=== PATIENT | male | born 1965 | race Caucasian/White ===

== ENCOUNTER 2017-04-15 08:10 | Inpatient (IN) | payer OTHER ==
[2017-04-15 10:12] VITALS: BMI 20.9
--- NOTE | 2017-04-15 13:13 | HP ---
CIWA Score - CIWA Score Nausea/Vomitin Muscle Tremors: 3 Anxiety: 3 Agitation: 3 Paroxysmal Sweats: 2 Orientation: 0-Oriented Tacttile Disturbances: 2-Mild Itch/Numbness/Burn Auditory Disturbances: 2-Mild Harshness/Frighten Visual Disturbances: 0-None Headache: 2-Mild CIWA-Ar Total Score: 20 Admission ROS BHS - HPI Chief Complaint: i need help to stop drinking alcohol Allergies/Adverse Reactions: Allergies Allergy/AdvReac Type Severity Reaction Status Date / Time No Known Allergies Allergy Verified 04/15/17 10:38 History of Present Illness: this 51 years old male with alcohol dependence,seeking detox,seen in [facility] last night,refer for detox,last treatment 02/14 [facility] seizure last 01/14 alcohol related syncope ptsd depression longest period sobriety 1 year Exam Limitations: No Limitations - Ebola screening Have you traveled outside of the country in the last 21 days: No Have you had contact with anyone from an Ebola affected area: No Have you been sick,other than usual withdrawal symptoms: No - Review of Systems Constitutional: Loss of Appetite, Malaise, Night Sweats, Changes in sleep, Weakness, Unintentional Wgt. Loss EENT: reports: Nose Congestion, Other (abrasion of nasal area) Respiratory: reports: No Symptoms reported Cardiac: reports: No Symptoms Reported GI: reports: Nausea, Poor Appetite, Abdominal cramping : reports: No Symptoms Reported Musculoskeletal: reports: Back Pain, Muscle Pain Integumentary: reports: Dryness Neuro: reports: Headache, Tremors Endocrine: reports: No Symptoms Reported Hematology: reports: No Symptoms Reported Psychiatric: reports: No Sypmtoms Reported, Judgement Intact, Mood/Affect Appropiate, Orientated x3, Depressed (depression) Patient History - Patient Medical History Hx Anemia: No Hx Asthma: No Hx Chronic Obstructive Pulmonary Disease (COPD): No Hx Cancer: Yes (left kidney in 2002) Hx Cardiac Disorders: No Hx Congestive Heart Failure: No Hx Hypertension: No Hx Hypercholesterolemia: No Hx Pacemaker: No HX Cerebrovascular Accident: No Hx Seizures: Yes (alcohol related-last episode was 3 mos. ago) Hx Dementia: No Hx Diabetes: No Hx Gastrointestinal Disorders: Yes (acid reflux) Hx Liver Disease: No Hx Genitourinary Disorders: No Hx Sexually Transmitted Disorders: No Hx Renal Disease (ESRD): No Hx Thyroid Disease: No Hx Human Immunodeficiency Virus (HIV): No (10/15 last negative) Hx Hepatitis C: No Hx Depression: Yes (ptsd) Hx Suicide Attempt: No Hx Bipolar Disorder: No Hx Schizophrenia: No Other Medical History: no suicidal,no homicidal - Patient Surgical History Past Surgical History: Yes Hx Neurologic Surgery: No Hx Cataract Extraction: No Hx Cardiac Surgery: No Hx Lung Surgery: No Hx Breast Surgery: No Hx Breast Biopsy: No Hx Abdominal Surgery: No Hx Appendectomy: No Hx Cholecystectomy: No Hx Genitourinary Surgery: No Hx Section: No Hx Orthopedic Surgery: No Other Surgical History: left nephrectomy in 2002,right mandible in 2004 Anesthesia Reaction: No - PPD History Previous Implant?: Yes Documented Results: Negative w/o proof Implanted On Prior R Admission?: No PPD to be Administered?: Yes - Smoking Cessation Smoking history: Current some day smoker Have you smoked in the past 12 months: Yes Aproximately how many cigarettes per day: 2 Hx Chewing Tobacco Use: No Initiated information on smoking cessation: Yes 'Breaking Loose' booklet given: 04/15/17 - Substance & Tx. History Hx Alcohol Use: Yes Hx Substance Use: No Substance Use Type: Alcohol Hx Substance Use Treatment: Yes ([facility] in 02/14) - Substances Abused Alcohol-vodka Route: Oral Frequency: Daily Amount used: 2 pts. Age of first use: 22 Date of Last Use: 04/14/17 Family Disease History - Family Disease History Family Disease History: Other: Grandparent (alcohol,) Admission Physical Exam BHS - Vital Signs Vital Signs: Vital Signs - 24 hr 04/15/17 10:08 Temperature 96.8 F L Pulse Rate 80 Respiratory 20 Rate Blood Pressure 154/110 - Physical General Appearance: Yes: Moderate Distress, Tremorous, Irritable, Sweating, Anxious HEENTM: Yes: Normal ENT Inspection, MIGUEL, Pharynx Normal Respiratory: Yes: Lungs Clear, Normal Breath Sounds, No Respiratory Distress Neck: Yes: Within Normal Limits, Supple, Trachea in good position Breast: Yes: Within Normal Limits Cardiology: Yes: Within Normal Limits, Regular Rhythm, Regular Rate, S1, S2 Abdominal: Yes: Normal Bowel Sounds, Non Tender, Flat, Soft, Surgical Scar (s/p left nephrectomt left [id number] for cancer) Genitourinary: Yes: Within Normal Limits Back: Yes: Within Normal Limits Musculoskeletal: Yes: Back pain, Muscle Pain Extremities: Yes: Within Normal Limits, Normal Range of Motion, Tremors Neurological: Yes: shield installer II-XII NML intact, Alert, Motor Strength 5/5 Integumentary: Yes: Dry Lymphatic: Yes: Within Normal Limits - Diagnostic (1) Alcohol dependence with uncomplicated withdrawal Current Visit: Yes Status: Acute (2) Alcohol related seizure Current Visit: Yes Status: Acute (3) Syncope Current Visit: Yes Status: Acute (4) Post traumatic stress disorder (PTSD) Current Visit: Yes Status: Acute (5) Depression Current Visit: Yes Status: Acute (6) Weight loss Current Visit: Yes Status: Acute (7) Abrasion of nose Current Visit: Yes Status: Acute Cleared for Admission [facility] - Detox or Rehab [facility] Level of Care: Medically Managed Detox Regimen/Protocol: Librium [facility] Breath Alcohol Content Breath Alcohol Content: 0 Urine Drug Screen - Results Drug Screen Negative: No Urine Drug Screen Results: THC-Marijuana, BZO-Benzodiazepines
[2017-04-15] MEDS ORDERED: ACETAMINOPHEN 325 MG TABLET (FP) PO PRN (13:32)
[2017-04-15] MEDS ORDERED: chlordiazePOXIDE HCL 25 MG CAPSULE PO PRN (13:32)
[2017-04-15] MEDS ORDERED: MAGNESIUM CITRATE 300 ML BOTTLE PO PRN (13:32)
[2017-04-15] MEDS ORDERED: guaiFENesin/D-METHORPHAN HB 10 ML UNIT-DOSE CUPS PO PRN (13:32)
[2017-04-15] MEDS ORDERED: hydrOXYzine PAMOATE 50 MG CAPSULE (FP) PO PRN (13:32)
[2017-04-15] MEDS ORDERED: P-EPHED 60MG/TRIPROLIDI 2.5MG TABLET PO PRN (13:32)
[2017-04-15] MEDS ORDERED: MAG HYDROX/AL HYDROX/SIMETH 30 ML UNIT-DOSE CUP PO PRN (13:32)
[2017-04-15] MEDS ORDERED: MENTHOL/PHENOL 1 EACH UD MM PRN (13:32)
[2017-04-15] MEDS ORDERED: MAGNESIUM HYDROX 2400MG/30ML ORAL SUSPENSION 30 ML CUP PO PRN (13:32)
[2017-04-15] MEDS ORDERED: LOPERAMIDE HCL 2 MG CAPSULE PO PRN (13:32)
[2017-04-15] MEDS ORDERED: chlordiazePOXIDE HCL 25 MG CAPSULE PO ONE (13:48)
[2017-04-15] MEDS ORDERED: cloNIDine HCL 0.1 MG TABLET PO ONE (13:49)
[2017-04-15] MEDS: PANTOPRAZOLE 40 MG TABLET (FP) PO SCH (15:44)
[2017-04-15] MEDS: chlordiazePOXIDE HCL 25 MG CAPSULE PO SCH ×2 (17:09→22:15)
[2017-04-15] MEDS: BACITRACIN 0.9 GM PACKET TP SCH (22:15)
[2017-04-15] MEDS: diphenhydrAMINE HCL 50 MG CAPSULE PO PRN (22:15)
[2017-04-15] MEDS: THIAMINE HCL 100 MG TABLET (FP) PO SCH (22:15)
[2017-04-15 22:19] LABS: URINE APPEARANCE CLEAR; URINE BILIRUBIN NEGATIVE (NEGATIVE); URINE BLOOD NEGATIVE (NEGATIVE); URINE COLOR YELLOW; URINE GLUCOSE (UA) NEGATIVE (NEGATIVE); URINE KETONE TRACE (NEGATIVE); URINE NITRITE NEGATIVE (NEGATIVE); URINE PROTEIN NEGATIVE (NEGATIVE)
[2017-04-15 23:27] LABS: URINE LEUK ESTERASE Negative (NEGATIVE)
[2017-04-16] MEDS: chlordiazePOXIDE HCL 25 MG CAPSULE PO SCH ×4 (05:24→22:18)
--- NOTE | 2017-04-16 09:44 | CONSULT ---
[facility] Psychiatric Consult - Data Date of interview: 04/16/17 Admission source: [facility] Identifying data: Mr Castellanos is a 51 years old male, unemployed on SSD, homeless Substance Abuse History: Reports history of alcohol use. He started drinking alcohol at age 22, consumes 2 pints daily. Last drink on 04/14/17 Medical History: Significant for GERD, Alcohol-related seizure and history of surgery for fracture mandible in 2004 and left nephrectomy. Smokes occasionlly when he drinks Psychiatric History: Reports being diagnosed with PTSD & MDD in 2012 and prescribed Prozac and Zyprexa. Reports one previous psychiatric admission in 2016 to [facility] for suicidal ideation and alcohol intoxication. Told senior technical writer that he was kept for 2 weeks and treated with Prozac 20 mg po daily and Zyprexa 5 mg po HS. reports that he did not comply with aftercare following discharge but visits ED for medication refills. Reports that he ran out of medications 2 months ago. Requests to resume these medications during this admission. At present, reports feeling depressed and anxious. Denies hearing voices at present but to have heard voices last night Physical/Sexual Abuse/Trauma History: Denies history of verbal, physical or sexual abuse as well as DV relationship. No service Additional Comment: Reports history of 3 previous misdemeanor arrests on charges of shoplifting and drinking in public. No probation currently Mental Status Exam - Mental Status Exam Alert and Oriented to: Time, Place, Person Cognitive Function: Fair Patient Appearance: Well Groomed Mood: Depressed, Anxious Affect: Appropriate Patient Behavior: Cooperative Speech Pattern: Clear Voice Loudness: Normal Thought Process: Intact Thought Disorder: Not Present Hallucinations: Denies Suicidal Ideation: Denies Homicidal Ideation: Denies Insight/Judgement: Poor Sleep: Poorly Appetite: Poor Muscle strength/Tone: Normal Gait/Station: Normal Psychiatric Findings - Problem List ([place] 1, 2,3) (1) Substance induced mood disorder Current Visit: Yes Status: Acute (2) MDD (major depressive disorder), recurrent, severe, with psychosis Current Visit: Yes Status: Ruled-out (3) Post traumatic stress disorder (PTSD) Current Visit: Yes Status: Acute (4) Alcohol dependence with uncomplicated withdrawal Current Visit: Yes Status: Acute (5) Alcohol related seizure Current Visit: Yes Status: Acute (6) GERD (gastroesophageal reflux disease) Current Visit: Yes Status: Acute - Initial Treatment Plan Initial Treatment Plan: 1) Resume Prozac 20 mg po daily and Zyprexa 5 mg po HS. 2) Start Belsomra 10 mg po HS prn for insomnia. Benefits vs Risks of medication discussed with patient and he agreed to try it. 3) Continue inpatient detoxification
[2017-04-16 09:54] LABS: MCH 30.8 pg (25.7-33.7); MCHC 33.7 g/dl (32.0-35.9); MEAN CELL VOLUME 91.4 fl (80-96); MEAN PLT VOLUME 10.1 fl (7.5-11.1); PLATELET COUNT 94 K/MM3 (134-434); RDW 14.8 % (11.9-15.9); WHITE BLOOD COUNT 5.1 K/mm3 (4.0-10.0)
[2017-04-16] MEDS ORDERED: OLANZapine 5 MG TABLET PO SCH (10:00)
[2017-04-16] MEDS: PANTOPRAZOLE 40 MG TABLET (FP) PO SCH (10:25)
[2017-04-16] MEDS: BACITRACIN 0.9 GM PACKET TP SCH ×2 (10:25→22:18)
[2017-04-16] MEDS: PRENATAL VITAMINS W/ FOLIC ACID TABLET (FP) PO SCH (10:25)
[2017-04-16] MEDS: FLUoxetine HCL 20 MG CAPSULE (FP) PO SCH (10:28)
[2017-04-16 10:41] LABS: ALBUMIN 3.3 g/dl (3.4-5.0); ALK PHOS 140 U/L (45-117); ANION GAP 11 (8-16); BILIRUBIN,TOTAL 1.3 mg/dL (0.2-1.0); CALCIUM 8.3 mg/dL (8.5-10.1); CO2 27 mmol/L (21-32); CREATININE 0.9 mg/dL (0.7-1.3); GLUCOSE,RANDOM 144 mg/dL (74-106); SGOT/AST 46 U/L (15-37); SGPT/ALT 37 U/L (12-78)
--- NOTE | 2017-04-16 12:44 | PN ---
S CIWA - CIWA Score Nausea/Vomitin Muscle Tremors: 4-Moderate,w/Arms Extend Anxiety: 3 Agitation: 1-Slight > Activity Paroxysmal Sweats: 3 Orientation: 0-Oriented Tacttile Disturbances: 3-Moderate Itch/Numb/Burn Auditory Disturbances: 0-None Visual Disturbances: 0-None Headache: 3-Moderate CIWA-Ar Total Score: 20 BHS Progress Note (SOAP) Subjective: Tremors, Sweating, H/A, Body Aches, Nausea, diarrhea. Objective: PT. A & O X 3. NO ACUTE DISTRESS. PT. DENIES CHEST PAIN. 04/16/17 12:41 Vital Signs Temperature 96.4 F L 04/16/17 09:09 Pulse Rate 79 04/16/17 09:09 Respiratory Rate 18 04/16/17 09:09 Blood Pressure 149/99 04/16/17 09:09 O2 Sat by Pulse Oximetry (%) Laboratory Tests 04/15/17 04/16/17 04/16/17 22:00 06:00 06:00 WBC 5.1 RBC 4.74 Hgb 14.6 Hct 43.3 MCV 91.4 MCH 30.8 MCHC 33.7 RDW 14.8 Plt Count 94 L MPV 10.1 Sodium 138 Potassium 3.5 Chloride 100 Carbon Dioxide 27 Anion Gap 11 BUN 7 Creatinine 0.9 Creat Clearance w eGFR > 60 Random Glucose 144 H Calcium 8.3 L Total Bilirubin 1.3 H AST 46 H ALT 37 Alkaline Phosphatase 140 H Total Protein 7.0 Albumin 3.3 L Urine Color Yellow Urine Appearance Clear Urine pH 8.0 Ur Specific [place] 1.015 Urine Protein Negative Urine Glucose (UA) Negative Urine Ketones Trace H Urine Blood Negative Urine Nitrite Negative Urine Bilirubin Negative Urine Urobilinogen 2.0 Ur Leukocyte Esterase Negative RPR Titer 04/16/17 06:00 WBC RBC Hgb Hct MCV MCH MCHC RDW Plt Count MPV Sodium Potassium Chloride Carbon Dioxide Anion Gap BUN Creatinine Creat Clearance w eGFR Random Glucose Calcium Total Bilirubin AST ALT Alkaline Phosphatase Total Protein Albumin Urine Color Urine Appearance Urine pH Ur Specific [place] Urine Protein Urine Glucose (UA) Urine Ketones Urine Blood Urine Nitrite Urine Bilirubin Urine Urobilinogen Ur Leukocyte Esterase RPR Titer Nonreactive LABS NOTED. Assessment: 04/16/17 12:42 WITHDRAWAL SYMPTOMS. Plan: CONTINUE DETOX.
[2017-04-16] MEDS: OLANZapine 5 MG TABLET PO SCH (22:18)
[2017-04-16] MEDS: THIAMINE HCL 100 MG TABLET (FP) PO SCH (22:19)
[2017-04-17] MEDS: chlordiazePOXIDE HCL 25 MG CAPSULE PO SCH ×2 (05:08→10:20)
[2017-04-17] MEDS: PRENATAL VITAMINS W/ FOLIC ACID TABLET (FP) PO SCH (10:18)
[2017-04-17] MEDS: FLUoxetine HCL 20 MG CAPSULE (FP) PO SCH (10:18)
[2017-04-17] MEDS: PANTOPRAZOLE 40 MG TABLET (FP) PO SCH (10:18)
[2017-04-17] MEDS: BACITRACIN 0.9 GM PACKET TP SCH ×2 (10:18→22:12)
[2017-04-17] MEDS ORDERED: diphenhydrAMINE HCL 50 MG CAPSULE PO ONE (11:00)
--- NOTE | 2017-04-17 11:59 | EKG ---
Test Reason : Blood Pressure : / mmHG Vent. Rate : 072 BPM Atrial Rate : 072 BPM P-R Int : 194 ms QRS Dur : 106 ms QT Int : 396 ms P-R-T Axes : 071 007 059 degrees QTc Int : 433 ms NORMAL SINUS RHYTHM INCOMPLETE RIGHT BUNDLE BRANCH BLOCK BORDERLINE ECG NO PREVIOUS ECGS AVAILABLE Confirmed by DEZ SEGOVIA, ED ([id number] on 04/17/2017 11:59:18 AM Referred By: Confirmed By:ED GARCES MD
[2017-04-17] MEDS ORDERED: diphenhydrAMINE HCL 25 MG CAPSULE (FP) PO ONE (12:09)
[2017-04-17] MEDS: HYDROCORTISONE 1% TOPICAL OINT 30 GM TUBE TP SCH ×2 (13:33→22:13)
--- NOTE | 2017-04-17 13:44 | PN ---
[facility] CIWA - CIWA Score Nausea/Vomitin-No Nausea/No Vomiting Muscle Tremors: 4-Moderate,w/Arms Extend Anxiety: 2 Agitation: 2 Paroxysmal Sweats: 3 Orientation: 0-Oriented Tacttile Disturbances: 3-Moderate Itch/Numb/Burn Auditory Disturbances: 0-None Visual Disturbances: 0-None Headache: 3-Moderate CIWA-Ar Total Score: 17 BHS Progress Note (SOAP) Subjective: Stomach Cramping, H/A, Sweating, Tremors. Pt. reporting rash on upper back, upper arms, and neck (that was present at time of admission to Detox). Pt. reports that lesions are itchy and that affected surface area has been increasing over the last couple of days. Objective: PT. A & O X 3, OBSERVED AMBULATING ON UNIT. NO ACUTE DISTRESS. SMALL PAPULAR ERYTHEMATOUS BUMPS NOTED ON UPPER BACK AND ARMS. NO BLEEDING OR UNUSUAL DISCAHRGE NOTED AT AFFECTED SITES. PATIENT DENIES ANY ALLERGIES. 04/17/17 13:41 Vital Signs Temperature 97.5 F L 04/17/17 13:09 Pulse Rate 91 H 04/17/17 13:09 Respiratory Rate 20 04/17/17 13:09 Blood Pressure 121/95 04/17/17 13:09 O2 Sat by Pulse Oximetry (%) Laboratory Tests 04/15/17 04/16/17 04/16/17 22:00 06:00 06:00 WBC 5.1 RBC 4.74 Hgb 14.6 Hct 43.3 MCV 91.4 MCH 30.8 MCHC 33.7 RDW 14.8 Plt Count 94 L MPV 10.1 Sodium 138 Potassium 3.5 Chloride 100 Carbon Dioxide 27 Anion Gap 11 BUN 7 Creatinine 0.9 Creat Clearance w eGFR > 60 POC Glucometer Random Glucose 144 H Calcium 8.3 L Total Bilirubin 1.3 H AST 46 H ALT 37 Alkaline Phosphatase 140 H Total Protein 7.0 Albumin 3.3 L Urine Color Yellow Urine Appearance Clear Urine pH 8.0 Ur Specific [place] 1.015 Urine Protein Negative Urine Glucose (UA) Negative Urine Ketones Trace H Urine Blood Negative Urine Nitrite Negative Urine Bilirubin Negative Urine Urobilinogen 2.0 Ur Leukocyte Esterase Negative RPR Titer 04/16/17 04/17/17 06:00 05:07 WBC RBC Hgb Hct MCV MCH MCHC RDW Plt Count MPV Sodium Potassium Chloride Carbon Dioxide Anion Gap BUN Creatinine Creat Clearance w eGFR POC Glucometer 118 Random Glucose Calcium Total Bilirubin AST ALT Alkaline Phosphatase Total Protein Albumin Urine Color Urine Appearance Urine pH Ur Specific [place] Urine Protein Urine Glucose (UA) Urine Ketones Urine Blood Urine Nitrite Urine Bilirubin Urine Urobilinogen Ur Leukocyte Esterase RPR Titer Nonreactive LABS NOTED. Assessment: 04/17/17 13:43 WITHDRAWAL SYMPTOMS. Plan: CONTINUE DETOX. BENADRYL, 50 MG PO X 1, HYDROCORTISONE OINTMENT TO BE APPLIED TID FOR SKIN CONDITION AFFECTING UPPER BACK AND UPPER ARMS. WILL CONTINUE TO MONITOR. INCREASE DAILY PO FLUID INTAKE.
[2017-04-17] MEDS: chlordiazePOXIDE 5 MG CAPSULE PO SCH ×2 (17:12→22:13)
[2017-04-17] MEDS: OLANZapine 5 MG TABLET PO SCH (22:12)
[2017-04-17] MEDS: THIAMINE HCL 100 MG TABLET (FP) PO SCH (22:13)
[2017-04-17] MEDS: diphenhydrAMINE HCL 50 MG CAPSULE PO PRN (22:14)
[2017-04-18] MEDS: chlordiazePOXIDE 5 MG CAPSULE PO SCH ×2 (05:22→10:18)
[2017-04-18] MEDS: HYDROCORTISONE 1% TOPICAL OINT 30 GM TUBE TP SCH ×3 (05:24→22:25)
[2017-04-18] MEDS: IBUPROFEN 400 MG TABLET (FP) PO PRN ×2 (05:56→12:04)
[2017-04-18] MEDS: BACITRACIN 0.9 GM PACKET TP SCH ×2 (10:17→22:25)
[2017-04-18] MEDS: FLUoxetine HCL 20 MG CAPSULE (FP) PO SCH (10:17)
[2017-04-18] MEDS: PRENATAL VITAMINS W/ FOLIC ACID TABLET (FP) PO SCH (10:18)
[2017-04-18] MEDS: PANTOPRAZOLE 40 MG TABLET (FP) PO SCH (10:20)
--- NOTE | 2017-04-18 11:53 | PN ---
BHS Progress Note (SOAP) Subjective: Diarrhea, abdominal cramps, anxious, sweating; c/o itchy rash on back, upper chest and shoulders after [place] to [place]. Patient stated he was given ointment this morning for the rash but not sure what it was. Objective: 04/18/17 11:49 Last Vital Signs Temp Pulse Resp BP Pulse Ox 97.0 F L 70 18 139/93 04/18/17 09:15 04/18/17 09:15 04/18/17 09:15 04/18/17 09:15 PE: macular, papular erythemic rash over back, upper chest and shoulders Laboratory Tests 04/15/17 04/16/17 04/16/17 22:00 06:00 06:00 WBC 5.1 RBC 4.74 Hgb 14.6 Hct 43.3 MCV 91.4 MCH 30.8 MCHC 33.7 RDW 14.8 Plt Count 94 L MPV 10.1 Sodium 138 Potassium 3.5 Chloride 100 Carbon Dioxide 27 Anion Gap 11 BUN 7 Creatinine 0.9 Creat Clearance w eGFR > 60 POC Glucometer Random Glucose 144 H Calcium 8.3 L Total Bilirubin 1.3 H AST 46 H ALT 37 Alkaline Phosphatase 140 H Total Protein 7.0 Albumin 3.3 L Urine Color Yellow Urine Appearance Clear Urine pH 8.0 Ur Specific [place] 1.015 Urine Protein Negative Urine Glucose (UA) Negative Urine Ketones Trace H Urine Blood Negative Urine Nitrite Negative Urine Bilirubin Negative Urine Urobilinogen 2.0 Ur Leukocyte Esterase Negative RPR Titer 04/16/17 04/17/17 04/18/17 06:00 05:07 05:21 WBC RBC Hgb Hct MCV MCH MCHC RDW Plt Count MPV Sodium Potassium Chloride Carbon Dioxide Anion Gap BUN Creatinine Creat Clearance w eGFR POC Glucometer 118 244 Random Glucose Calcium Total Bilirubin AST ALT Alkaline Phosphatase Total Protein Albumin Urine Color Urine Appearance Urine pH Ur Specific [place] Urine Protein Urine Glucose (UA) Urine Ketones Urine Blood Urine Nitrite Urine Bilirubin Urine Urobilinogen Ur Leukocyte Esterase RPR Titer Nonreactive Labs noted: hyperglycemia due to DMT2 Assessment: 04/18/17 11:50 Withdrawal symptoms Noted with contact dermatitis Noted with hyperglycemia Plan: Continue detox Dermatitis, contact: continue hydrocortisone ointment 1% Hyperglycemia secondary to DMT2 (newly dx): change ensure to glucerna supplement , change finger stick to ac meal, start insulin novolog sliding scale with coverage, start metformin 500mg PO bid. Follow up with PCP in 1-2 weeks post discharge for management.
[2017-04-18] MEDS: chlordiazePOXIDE HCL 10 MG CAPSULE PO SCH ×2 (17:34→22:25)
[2017-04-18] MEDS: metFORMIN HCL 500 MG TABLET (FP) PO SCH (17:34)
[2017-04-18] MEDS: INSULIN SLIDING SCALE (NOVOLOG) 1 VIAL SQ SCH (17:46)
[2017-04-18] MEDS: THIAMINE HCL 100 MG TABLET (FP) PO SCH (22:25)
[2017-04-18] MEDS: OLANZapine 5 MG TABLET PO SCH (22:26)
[2017-04-19] MEDS: chlordiazePOXIDE HCL 10 MG CAPSULE PO SCH ×2 (05:26→10:17)
[2017-04-19] MEDS: metFORMIN HCL 500 MG TABLET (FP) PO SCH (06:14)
[2017-04-19] MEDS: HYDROCORTISONE 1% TOPICAL OINT 30 GM TUBE TP SCH (06:14)
[2017-04-19] MEDS: INSULIN SLIDING SCALE (NOVOLOG) 1 VIAL SQ SCH ×2 (07:51→11:49)
[2017-04-19] MEDS: BACITRACIN 0.9 GM PACKET TP SCH (10:17)
[2017-04-19] MEDS: PRENATAL VITAMINS W/ FOLIC ACID TABLET (FP) PO SCH (10:17)
[2017-04-19] MEDS: FLUoxetine HCL 20 MG CAPSULE (FP) PO SCH (10:18)
[2017-04-19] MEDS: PANTOPRAZOLE 40 MG TABLET (FP) PO SCH (10:18)
--- NOTE | 2017-04-19 10:36 | DS ---
[facility] Detox Discharge Summary Admission Date: 04/15/17 Discharge Date: 04/19/17 - History Present History: Alcohol Dependence Pertinent Past History: GERD PTSD - Physical Exam Results Vital Signs: Vital Signs Temperature 97.7 F 04/19/17 06:27 Pulse Rate 83 04/19/17 06:27 Respiratory Rate 18 04/19/17 06:27 Blood Pressure 136/83 04/19/17 06:27 O2 Sat by Pulse Oximetry (%) Pertinent Admission Physical Exam Findings: Withdrawal sx. Laboratory Last Values WBC 5.1 K/mm3 (4.0-10.0) 04/16/17 06:00 RBC 4.74 M/mm3 (4.00-5.60) 04/16/17 06:00 Hgb 14.6 GM/dL (11.7-16.9) 04/16/17 06:00 Hct 43.3 % (35.4-49) 04/16/17 06:00 MCV 91.4 fl (80-96) 04/16/17 06:00 MCH 30.8 pg (25.7-33.7) 04/16/17 06:00 MCHC 33.7 g/dl (32.0-35.9) 04/16/17 06:00 RDW 14.8 % (11.9-15.9) 04/16/17 06:00 Plt Count 94 K/MM3 (134-434) L 04/16/17 06:00 MPV 10.1 fl (7.5-11.1) 04/16/17 06:00 Sodium 138 mmol/L (136-145) 04/16/17 06:00 Potassium 3.5 mmol/L (3.5-5.1) 04/16/17 06:00 Chloride 100 mmol/L (98-107) 04/16/17 06:00 Carbon Dioxide 27 mmol/L (21-32) 04/16/17 06:00 Anion Gap 11 (8-16) 04/16/17 06:00 BUN 7 mg/dL (7-18) 04/16/17 06:00 Creatinine 0.9 mg/dL (0.7-1.3) 04/16/17 06:00 Creat Clearance w eGFR > 60 (>60) 04/16/17 06:00 POC Glucometer 200 UNITS (()) 04/19/17 05:24 Random Glucose 144 mg/dL (74-106) H 04/16/17 06:00 Calcium 8.3 mg/dL (8.5-10.1) L 04/16/17 06:00 Total Bilirubin 1.3 mg/dL (0.2-1.0) H 04/16/17 06:00 AST 46 U/L (15-37) H 04/16/17 06:00 ALT 37 U/L (12-78) 04/16/17 06:00 Alkaline Phosphatase 140 U/L (45-117) H 04/16/17 06:00 Total Protein 7.0 g/dl (6.4-8.2) 04/16/17 06:00 Albumin 3.3 g/dl (3.4-5.0) L 04/16/17 06:00 Urine Color Yellow 04/15/17 22:00 Urine Appearance Clear 04/15/17 22:00 Urine pH 8.0 (5.0-8.0) 04/15/17 22:00 Ur Specific [place] 1.015 (1.005-1.025) 04/15/17 22:00 Urine Protein Negative (NEGATIVE) 04/15/17 22:00 Urine Glucose (UA) Negative (NEGATIVE) 04/15/17 22:00 Urine Ketones Trace (NEGATIVE) H 04/15/17 22:00 Urine Blood Negative (NEGATIVE) 04/15/17 22:00 Urine Nitrite Negative (NEGATIVE) 04/15/17 22:00 Urine Bilirubin Negative (NEGATIVE) 04/15/17 22:00 Urine Urobilinogen 2.0 mg/dL (0.2-1.0) 04/15/17 22:00 Ur Leukocyte Esterase Negative (NEGATIVE) 04/15/17 22:00 RPR Titer Nonreactive (NONREACTIVE) 04/16/17 06:00 labs noted - Treatment Hospital Course: Detox Protocol Followed, Detoxed Safely, Responded well, Discharged Condition Good, Rehab Referral Accepted Patient has Accepted a Rehab Referral to: [facility] - Medication Discharge Medications: Ambulatory Orders Fluoxetine HCl [Prozac -] 20 mg PO DAILY 04/15/17 Olanzapine [Zyprexa] 5 mg PO DAILY 04/15/17 Omeprazole 20 mg PO DAILY 04/15/17 Fluoxetine HCl [Prozac] 20 mg PO DAILY #30 capsule 04/16/17 Olanzapine [Zyprexa] 5 mg PO HS #30 tablet 04/16/17 - Diagnosis (1) Alcohol dependence with uncomplicated withdrawal Current Visit: Yes Status: Acute (2) GERD (gastroesophageal reflux disease) Current Visit: Yes Status: Acute (3) Post traumatic stress disorder (PTSD) Current Visit: Yes Status: Acute (4) Substance induced mood disorder Current Visit: Yes Status: Acute (5) MDD (major depressive disorder), recurrent, severe, with psychosis Current Visit: Yes Status: Ruled-out - AMA Did Patient Leave Against Medical Advice: No
[2017-04-19 13:52] VITALS: BP 153/78; PULSE 83; TEMP 97.3
== END 2017-04-19 13:20 | disposition home or self-care (01) | DRG 897 ==
LOC: YASAS 08:10 → Y3N 11:31
PROVIDERS: ADMIT Internal Medicine; ATTEND Internal Medicine
PROC: HZ2ZZZZ Detoxification Services for Substance Abuse Treatment (ICD-10-PCS; principal; 2017-04-15)
DX: F10.230 Alcohol dependence with withdrawal, uncomplicated (principal); F33.3 Major depressive disorder, recurrent, severe with psychotic symptoms; F43.10 Post-traumatic stress disorder, unspecified; F19.24 Other psychoactive substance dependence with psychoactive substance-induced mood disorder; K21.9 Gastro-esophageal reflux disease without esophagitis; Z86.69 Personal history of other diseases of the nervous system and sense organs
CPT/HCPCS: 36415; 80053; 81003; 85027; 86593; 93005; 93010

== ENCOUNTER 2018-11-18 15:12 | Inpatient (IN) | payer OTHER | END 2018-11-22 09:50 | disposition home or self-care (01) | LOC: YASAS 15:12 → Y6N 20:22 ==

== ENCOUNTER 2020-06-13 17:06 | Inpatient (IN) | payer OTHER ==
[2020-06-13] MEDS ORDERED: METHOCARBAMOL 500 MG TABLET PO PRN (20:09)
[2020-06-13] MEDS ORDERED: MAGNESIUM CITRATE 300 ML BOTTLE PO PRN (20:09)
[2020-06-13] MEDS ORDERED: ONDANSETRON *ODT* 4 MG TABLET SL PRN (20:09)
[2020-06-13] MEDS ORDERED: MAGNESIUM HYDROX 2400MG/30ML ORAL SUSPENSION 30 ML CUP PO PRN (20:09)
[2020-06-13] MEDS ORDERED: chlordiazePOXIDE HCL 25 MG CAPSULE PO PRN (20:09)
[2020-06-13] MEDS ORDERED: MENTHOL/PHENOL 1 EACH UD MM PRN (20:09)
[2020-06-13] MEDS ORDERED: ACETAMINOPHEN 325 MG TABLET (FP) PO PRN ×2 (20:09)
[2020-06-13] MEDS ORDERED: MAG HYDROX/AL HYDROX/SIMETH 30 ML UNIT-DOSE CUP PO PRN (20:09)
[2020-06-13] MEDS ORDERED: BISMUTH SUBSALICYLATE 524 MG/30 ML UD PO PRN (20:09)
[2020-06-13 20:30] VITALS: BMI 22.6
[2020-06-13] MEDS: THIAMINE HCL 100 MG TABLET (FP) PO SCH (22:44)
[2020-06-13] MEDS: chlordiazePOXIDE HCL 25 MG CAPSULE PO SCH (22:44)
[2020-06-13] MEDS: hydrOXYzine PAMOATE 25 MG CAPSULE (FP) PO SCH (22:44)
[2020-06-13] MEDS: MELATONIN 5 MG TABLETS PO SCH (22:44)
[2020-06-13] MEDS: INSULIN (LEVEMIR) 100 UNITS/ML UNITS SQ SCH (22:50)
[2020-06-14] MEDS: hydrOXYzine PAMOATE 25 MG CAPSULE (FP) PO SCH ×5 (05:23→22:23)
[2020-06-14] MEDS: chlordiazePOXIDE HCL 25 MG CAPSULE PO SCH ×4 (05:23→22:23)
[2020-06-14] MEDS: INSULIN SLIDING SCALE (NOVOLOG) 1 VIAL SQ SCH ×3 (06:21→16:59)
[2020-06-14] MEDS: PRENATAL VITAMINS W/ FOLIC ACID TABLET (FP) PO SCH (10:17)
[2020-06-14] MEDS: PANTOPRAZOLE 20 MG TABLET PO SCH (10:17)
[2020-06-14 10:47] LABS: HEMOGLOBIN 14.7 GM/dL (11.7-16.9); MEAN CELL VOLUME 91.8 fl (80-96); WHITE BLOOD COUNT 4.9 K/mm3 (4.0-10.0)
[2020-06-14 10:50] LABS: HEMATOCRIT 44.2 % (35.4-49); MCH 30.5 pg (25.7-33.7); MCHC 33.3 g/dl (32.0-35.9); MEAN PLT VOLUME 9.7 fl (7.5-11.1); PLATELET COUNT 123 K/MM3 (134-434); RBC 4.81 M/mm3 (4.00-5.60)
[2020-06-14 11:04] LABS: POTASSIUM 3.3 mmol/L (3.5-5.1)
[2020-06-14 11:24] LABS: ALBUMIN 3.2 g/dl (3.4-5.0); BLOOD UREA NITROGEN 6.2 mg/dL (7-18); CALCIUM 8.7 mg/dL (8.5-10.1)
[2020-06-14 11:28] LABS: BILIRUBIN,TOTAL 1.6 mg/dL (0.2-1); CREATININE 0.9 mg/dL (0.55-1.3)
[2020-06-14 11:29] LABS: TOT PROT 6.5 g/dl (6.4-8.2)
[2020-06-14] MEDS: MELATONIN 5 MG TABLETS PO SCH (22:16)
[2020-06-14] MEDS: INSULIN (LEVEMIR) 100 UNITS/ML UNITS SQ SCH (22:20)
[2020-06-14] MEDS: THIAMINE HCL 100 MG TABLET (FP) PO SCH (22:22)
[2020-06-15] MEDS: chlordiazePOXIDE HCL 25 MG CAPSULE PO SCH ×4 (05:53→22:10)
[2020-06-15] MEDS: hydrOXYzine PAMOATE 25 MG CAPSULE (FP) PO SCH ×5 (05:53→22:10)
[2020-06-15] MEDS: INSULIN SLIDING SCALE (NOVOLOG) 1 VIAL SQ SCH ×3 (06:00→17:37)
[2020-06-15] MEDS: PANTOPRAZOLE 20 MG TABLET PO SCH (10:17)
[2020-06-15] MEDS: PRENATAL VITAMINS W/ FOLIC ACID TABLET (FP) PO SCH (10:17)
[2020-06-15] MEDS ORDERED: ONDANSETRON *ODT* 4 MG TABLET SL ONE (10:26)
[2020-06-15] MEDS ORDERED: POTASSIUM CHLORIDE ORAL LIQUID 20 MEQ/15 ML PO ONE ×2 (15:30→19:30)
[2020-06-15] MEDS: INSULIN (LEVEMIR) 100 UNITS/ML UNITS SQ SCH (21:46)
[2020-06-15] MEDS: MELATONIN 5 MG TABLETS PO SCH (22:10)
[2020-06-15] MEDS: THIAMINE HCL 100 MG TABLET (FP) PO SCH (22:10)
[2020-06-16] MEDS ORDERED: chlordiazePOXIDE HCL 10 MG CAPSULE PO PRN
[2020-06-16] MEDS: chlordiazePOXIDE HCL 10 MG CAPSULE PO SCH ×4 (05:21→22:16)
[2020-06-16] MEDS: hydrOXYzine PAMOATE 25 MG CAPSULE (FP) PO SCH ×5 (05:21→22:16)
[2020-06-16] MEDS: INSULIN SLIDING SCALE (NOVOLOG) 1 VIAL SQ SCH ×3 (06:48→17:49)
[2020-06-16] MEDS: PANTOPRAZOLE 20 MG TABLET PO SCH (10:06)
[2020-06-16] MEDS: PRENATAL VITAMINS W/ FOLIC ACID TABLET (FP) PO SCH (10:06)
[2020-06-16] MEDS: IBUPROFEN 400 MG TABLET (FP) PO PRN (10:08)
[2020-06-16] MEDS: INSULIN (LEVEMIR) 100 UNITS/ML UNITS SQ SCH (21:03)
[2020-06-16] MEDS: MELATONIN 5 MG TABLETS PO SCH (22:16)
[2020-06-16] MEDS: THIAMINE HCL 100 MG TABLET (FP) PO SCH (22:16)
[2020-06-17] MEDS: hydrOXYzine PAMOATE 25 MG CAPSULE (FP) PO SCH ×5 (05:18→22:10)
[2020-06-17] MEDS: chlordiazePOXIDE HCL 10 MG CAPSULE PO SCH ×2 (05:18→17:00)
[2020-06-17] MEDS ORDERED: INSULIN SLIDING SCALE (NOVOLOG) 1 VIAL SQ ONE ×2 (05:19→11:38)
[2020-06-17] MEDS: INSULIN SLIDING SCALE (NOVOLOG) 1 VIAL SQ SCH ×3 (06:02→16:59)
[2020-06-17] MEDS: PANTOPRAZOLE 20 MG TABLET PO SCH (10:09)
[2020-06-17] MEDS: PRENATAL VITAMINS W/ FOLIC ACID TABLET (FP) PO SCH (10:09)
[2020-06-17] MEDS: THIAMINE HCL 100 MG TABLET (FP) PO SCH (22:10)
[2020-06-17] MEDS: MELATONIN 5 MG TABLETS PO SCH (22:10)
[2020-06-17] MEDS: IBUPROFEN 400 MG TABLET (FP) PO PRN (22:11)
[2020-06-17] MEDS: INSULIN (LEVEMIR) 100 UNITS/ML UNITS SQ SCH (22:12)
[2020-06-18] MEDS ORDERED: chlordiazePOXIDE HCL 10 MG CAPSULE PO ONE (05:00)
[2020-06-18] MEDS: hydrOXYzine PAMOATE 25 MG CAPSULE (FP) PO SCH ×4 (05:35→17:16)
[2020-06-18] MEDS: INSULIN SLIDING SCALE (NOVOLOG) 1 VIAL SQ SCH ×3 (06:16→17:15)
[2020-06-18] MEDS: PRENATAL VITAMINS W/ FOLIC ACID TABLET (FP) PO SCH (09:56)
[2020-06-18] MEDS: PANTOPRAZOLE 20 MG TABLET PO SCH (09:57)
[2020-06-18] MEDS ORDERED: INSULIN SLIDING SCALE (NOVOLOG) 1 VIAL SQ ONE (11:32)
[2020-06-18 17:11] VITALS: BP 119/77; PULSE 63; TEMP 98.6
== END 2020-06-18 06:57 | disposition other institution (70) | DRG 897 ==
LOC: YASAS 17:06 → Y3N 20:57
PROVIDERS: ADMIT Allergy & Immunology; ATTEND Allergy & Immunology
PROC: HZ2ZZZZ Detoxification Services for Substance Abuse Treatment (ICD-10-PCS; principal; 2020-06-13)
DX: F10.230 Alcohol dependence with withdrawal, uncomplicated (principal); E11.9 Type 2 diabetes mellitus without complications; K21.9 Gastro-esophageal reflux disease without esophagitis; Z85.528 Personal history of other malignant neoplasm of kidney; Z79.4 Long term (current) use of insulin
CPT/HCPCS: 36415; 80053; 82962; 84132; 85027; 86780; 93005; 93010; C9803; Q0162; U0003

== ENCOUNTER 2020-06-18 19:03 | Inpatient (IN) | payer OTHER ==
[2020-06-18] MEDS ORDERED: MAGNESIUM HYDROX 2400MG/30ML ORAL SUSPENSION 30 ML CUP PO PRN (19:22)
[2020-06-18] MEDS ORDERED: LOPERAMIDE HCL 2 MG CAPSULE PO PRN (19:22)
[2020-06-18] MEDS ORDERED: ACETAMINOPHEN 325 MG TABLET (FP) PO PRN (19:22)
[2020-06-18] MEDS ORDERED: MENTHOL/PHENOL 1 EACH UD MM PRN (19:22)
[2020-06-18] MEDS ORDERED: MAGNESIUM CITRATE 300 ML BOTTLE PO PRN (19:22)
[2020-06-18] MEDS ORDERED: NICOTINE POLACRILEX 2 MG GUM BUC PRN (19:22)
[2020-06-18] MEDS ORDERED: MAG HYDROX/AL HYDROX/SIMETH 30 ML UNIT-DOSE CUP PO PRN (19:22)
[2020-06-18] MEDS ORDERED: P-EPHED 60MG/TRIPROLIDI 2.5MG TABLET PO PRN (19:22)
[2020-06-18] MEDS ORDERED: guaiFENesin 200 MG/10 ML 10 ML UNIT-DOSE CUPS PO PRN (19:22)
[2020-06-18] MEDS ORDERED: INSULIN (NOVOLOG) ASPART 100 UNITS/ML 10ML VIAL ONE (21:25)
[2020-06-18] MEDS: MELATONIN 5 MG TABLETS PO SCH (21:27)
[2020-06-18] MEDS: hydrOXYzine PAMOATE 25 MG CAPSULE (FP) PO SCH (21:27)
[2020-06-18] MEDS: THIAMINE HCL 100 MG TABLET (FP) PO SCH (21:27)
[2020-06-18] MEDS: INSULIN SLIDING SCALE (NOVOLOG) 1 VIAL SQ SCH (21:28)
[2020-06-18] MEDS: INSULIN (LEVEMIR) 100 UNITS/ML UNITS SQ SCH (21:29)
[2020-06-19] MEDS: hydrOXYzine PAMOATE 25 MG CAPSULE (FP) PO SCH ×5 (06:26→21:18)
[2020-06-19] MEDS: INSULIN SLIDING SCALE (NOVOLOG) 1 VIAL SQ SCH ×4 (06:27→21:26)
[2020-06-19] MEDS: PRENATAL VITAMINS W/ FOLIC ACID TABLET (FP) PO SCH (10:03)
[2020-06-19] MEDS: PANTOPRAZOLE 20 MG TABLET PO SCH (10:04)
[2020-06-19] MEDS: NICOTINE 7 MG/24 HOURS TOPICAL PATCH TD SCH (10:04)
[2020-06-19] MEDS: IBUPROFEN 400 MG TABLET (FP) PO PRN (10:05)
[2020-06-19] MEDS ORDERED: INSULIN (NOVOLOG) ASPART 100 UNITS/ML 10ML VIAL ONE ×3 (10:52→21:25)
[2020-06-19] MEDS: MELATONIN 5 MG TABLETS PO SCH (21:18)
[2020-06-19] MEDS: THIAMINE HCL 100 MG TABLET (FP) PO SCH (21:18)
[2020-06-19] MEDS: INSULIN (LEVEMIR) 100 UNITS/ML UNITS SQ SCH (21:23)
[2020-06-20] MEDS: hydrOXYzine PAMOATE 25 MG CAPSULE (FP) PO SCH ×5 (06:22→21:39)
[2020-06-20] MEDS: INSULIN SLIDING SCALE (NOVOLOG) 1 VIAL SQ SCH ×4 (06:23→21:38)
[2020-06-20] MEDS: PRENATAL VITAMINS W/ FOLIC ACID TABLET (FP) PO SCH (10:05)
[2020-06-20] MEDS: NICOTINE 7 MG/24 HOURS TOPICAL PATCH TD SCH (10:05)
[2020-06-20] MEDS: PANTOPRAZOLE 20 MG TABLET PO SCH (10:05)
[2020-06-20] MEDS: ESCITALOPRAM OXALATE 20 MG TABLET PO SCH (15:46)
[2020-06-20] MEDS: ARIPiprazole 5 MG TABLET PO SCH (15:46)
[2020-06-20] MEDS ORDERED: INSULIN (NOVOLOG) ASPART 100 UNITS/ML 10ML VIAL ONE (16:35)
[2020-06-20] MEDS: INSULIN (LEVEMIR) 100 UNITS/ML UNITS SQ SCH (21:36)
[2020-06-20] MEDS: THIAMINE HCL 100 MG TABLET (FP) PO SCH (21:39)
[2020-06-20] MEDS: IBUPROFEN 400 MG TABLET (FP) PO PRN (21:39)
[2020-06-20] MEDS: MELATONIN 5 MG TABLETS PO SCH (21:39)
[2020-06-21] MEDS: hydrOXYzine PAMOATE 25 MG CAPSULE (FP) PO SCH ×5 (06:20→21:17)
[2020-06-21] MEDS: INSULIN SLIDING SCALE (NOVOLOG) 1 VIAL SQ SCH ×4 (06:21→21:16)
[2020-06-21] MEDS ORDERED: INSULIN (NOVOLOG) ASPART 100 UNITS/ML 10ML VIAL ONE ×3 (06:22→21:34)
[2020-06-21] MEDS: ESCITALOPRAM OXALATE 20 MG TABLET PO SCH (09:40)
[2020-06-21] MEDS: NICOTINE 7 MG/24 HOURS TOPICAL PATCH TD SCH (09:40)
[2020-06-21] MEDS: ARIPiprazole 5 MG TABLET PO SCH (09:40)
[2020-06-21] MEDS: PRENATAL VITAMINS W/ FOLIC ACID TABLET (FP) PO SCH (09:40)
[2020-06-21] MEDS: PANTOPRAZOLE 20 MG TABLET PO SCH (09:41)
[2020-06-21] MEDS: INSULIN (LEVEMIR) 100 UNITS/ML UNITS SQ SCH (21:16)
[2020-06-21] MEDS: THIAMINE HCL 100 MG TABLET (FP) PO SCH (21:17)
[2020-06-21] MEDS: IBUPROFEN 600 MG TABLET (FP) PO PRN (21:17)
[2020-06-21] MEDS: MELATONIN 5 MG TABLETS PO SCH (21:17)
[2020-06-21] MEDS ORDERED: INSULIN (LEVEMIR) 100 UNITS/ML UNITS SQ ONE (21:35)
[2020-06-22] MEDS: hydrOXYzine PAMOATE 25 MG CAPSULE (FP) PO SCH ×5 (06:24→21:17)
[2020-06-22] MEDS ORDERED: INSULIN (NOVOLOG) ASPART 100 UNITS/ML 10ML VIAL ONE ×3 (06:26→16:47)
[2020-06-22] MEDS: INSULIN SLIDING SCALE (NOVOLOG) 1 VIAL SQ SCH ×4 (06:26→21:16)
[2020-06-22] MEDS: IBUPROFEN 600 MG TABLET (FP) PO PRN ×2 (09:36→21:17)
[2020-06-22] MEDS: PRENATAL VITAMINS W/ FOLIC ACID TABLET (FP) PO SCH (09:36)
[2020-06-22] MEDS: ARIPiprazole 5 MG TABLET PO SCH (09:37)
[2020-06-22] MEDS: PANTOPRAZOLE 20 MG TABLET PO SCH (09:37)
[2020-06-22] MEDS: ESCITALOPRAM OXALATE 20 MG TABLET PO SCH (09:37)
[2020-06-22] MEDS: NICOTINE 7 MG/24 HOURS TOPICAL PATCH TD SCH (09:37)
[2020-06-22] MEDS: INSULIN (LEVEMIR) 100 UNITS/ML UNITS SQ SCH (21:15)
[2020-06-22] MEDS: THIAMINE HCL 100 MG TABLET (FP) PO SCH (21:17)
[2020-06-22] MEDS: MELATONIN 5 MG TABLETS PO SCH (21:17)
[2020-06-23] MEDS: hydrOXYzine PAMOATE 25 MG CAPSULE (FP) PO SCH ×5 (06:06→21:21)
[2020-06-23] MEDS: INSULIN SLIDING SCALE (NOVOLOG) 1 VIAL SQ SCH ×3 (06:07→16:52)
[2020-06-23] MEDS: ARIPiprazole 5 MG TABLET PO SCH (09:47)
[2020-06-23] MEDS: ESCITALOPRAM OXALATE 20 MG TABLET PO SCH (09:47)
[2020-06-23] MEDS: PRENATAL VITAMINS W/ FOLIC ACID TABLET (FP) PO SCH (09:47)
[2020-06-23] MEDS: PANTOPRAZOLE 20 MG TABLET PO SCH (09:47)
[2020-06-23] MEDS: IBUPROFEN 600 MG TABLET (FP) PO PRN (09:47)
[2020-06-23] MEDS: NICOTINE 7 MG/24 HOURS TOPICAL PATCH TD SCH (09:56)
[2020-06-23] MEDS ORDERED: INSULIN (NOVOLOG) ASPART 100 UNITS/ML 10ML VIAL ONE ×2 (12:12→17:08)
[2020-06-23] MEDS: LIDOCAINE 5% TOPICAL PATCH TP SCH (12:47)
[2020-06-23] MEDS: METHOCARBAMOL 500 MG TABLET PO SCH ×3 (14:35→21:21)
[2020-06-23] MEDS: MELATONIN 5 MG TABLETS PO SCH (21:20)
[2020-06-23] MEDS: THIAMINE HCL 100 MG TABLET (FP) PO SCH (21:20)
[2020-06-23] MEDS: LIDOCAINE PATCH REMOVAL MC SCH (21:21)
[2020-06-23] MEDS: ACAMPROSATE CALCIUM 333 MG TABLET.DR PO SCH (21:22)
[2020-06-23] MEDS: INSULIN (LEVEMIR) 100 UNITS/ML UNITS SQ SCH (21:26)
[2020-06-23] MEDS: METHYL SALICYLATE/MENTHOL OINT 30 GM TUBE TP SCH (21:27)
[2020-06-24] MEDS: ACAMPROSATE CALCIUM 333 MG TABLET.DR PO SCH ×3 (06:54→21:34)
[2020-06-24] MEDS: hydrOXYzine PAMOATE 25 MG CAPSULE (FP) PO SCH ×5 (06:54→21:35)
[2020-06-24] MEDS: INSULIN SLIDING SCALE (NOVOLOG) 1 VIAL SQ SCH ×3 (06:57→17:03)
[2020-06-24] MEDS: INSULIN (LEVEMIR) 100 UNITS/ML UNITS SQ SCH ×2 (06:57→21:33)
[2020-06-24] MEDS: ESCITALOPRAM OXALATE 20 MG TABLET PO SCH (10:08)
[2020-06-24] MEDS: PANTOPRAZOLE 20 MG TABLET PO SCH (10:08)
[2020-06-24] MEDS: PRENATAL VITAMINS W/ FOLIC ACID TABLET (FP) PO SCH (10:08)
[2020-06-24] MEDS: METHOCARBAMOL 500 MG TABLET PO SCH ×4 (10:09→21:34)
[2020-06-24] MEDS: NICOTINE 7 MG/24 HOURS TOPICAL PATCH TD SCH (10:09)
[2020-06-24] MEDS: LIDOCAINE 5% TOPICAL PATCH TP SCH (10:09)
[2020-06-24] MEDS: ARIPiprazole 5 MG TABLET PO SCH (10:09)
[2020-06-24] MEDS ORDERED: INSULIN (NOVOLOG) ASPART 100 UNITS/ML 10ML VIAL ONE (11:46)
[2020-06-24] MEDS: IBUPROFEN 600 MG TABLET (FP) PO PRN (14:09)
[2020-06-24] MEDS: MELATONIN 5 MG TABLETS PO SCH (21:34)
[2020-06-24] MEDS: THIAMINE HCL 100 MG TABLET (FP) PO SCH (21:35)
[2020-06-24] MEDS: LIDOCAINE PATCH REMOVAL MC SCH (21:36)
[2020-06-24] MEDS: METHYL SALICYLATE/MENTHOL OINT 30 GM TUBE TP SCH (21:36)
[2020-06-25] MEDS: ACAMPROSATE CALCIUM 333 MG TABLET.DR PO SCH ×3 (06:54→21:38)
[2020-06-25] MEDS: hydrOXYzine PAMOATE 25 MG CAPSULE (FP) PO SCH ×5 (06:54→21:38)
[2020-06-25] MEDS: INSULIN (LEVEMIR) 100 UNITS/ML UNITS SQ SCH ×2 (06:54→21:37)
[2020-06-25] MEDS: INSULIN SLIDING SCALE (NOVOLOG) 1 VIAL SQ SCH ×3 (06:55→17:01)
[2020-06-25] MEDS: ESCITALOPRAM OXALATE 20 MG TABLET PO SCH (10:02)
[2020-06-25] MEDS: PRENATAL VITAMINS W/ FOLIC ACID TABLET (FP) PO SCH (10:02)
[2020-06-25] MEDS: PANTOPRAZOLE 20 MG TABLET PO SCH (10:02)
[2020-06-25] MEDS: NICOTINE 7 MG/24 HOURS TOPICAL PATCH TD SCH (10:03)
[2020-06-25] MEDS: METHOCARBAMOL 500 MG TABLET PO SCH ×4 (10:03→21:38)
[2020-06-25] MEDS: LIDOCAINE 5% TOPICAL PATCH TP SCH (10:03)
[2020-06-25] MEDS: ARIPiprazole 5 MG TABLET PO SCH (10:04)
[2020-06-25] MEDS ORDERED: INSULIN (NOVOLOG) ASPART 100 UNITS/ML 10ML VIAL ONE ×2 (12:05→22:22)
[2020-06-25] MEDS: IBUPROFEN 600 MG TABLET (FP) PO PRN (14:07)
[2020-06-25] MEDS: THIAMINE HCL 100 MG TABLET (FP) PO SCH (21:38)
[2020-06-25] MEDS: METHYL SALICYLATE/MENTHOL OINT 30 GM TUBE TP SCH (21:38)
[2020-06-25] MEDS: LIDOCAINE PATCH REMOVAL MC SCH (21:38)
[2020-06-25] MEDS: MELATONIN 5 MG TABLETS PO SCH (21:38)
[2020-06-25] MEDS ORDERED: INSULIN (LEVEMIR) 100 UNITS/ML UNITS SQ ONE (22:22)
[2020-06-26] MEDS: hydrOXYzine PAMOATE 25 MG CAPSULE (FP) PO SCH ×5 (06:50→21:49)
[2020-06-26] MEDS: ACAMPROSATE CALCIUM 333 MG TABLET.DR PO SCH ×3 (06:50→21:49)
[2020-06-26] MEDS: INSULIN (LEVEMIR) 100 UNITS/ML UNITS SQ SCH ×2 (06:51→21:47)
[2020-06-26] MEDS: INSULIN SLIDING SCALE (NOVOLOG) 1 VIAL SQ SCH ×3 (06:54→17:01)
[2020-06-26] MEDS: NICOTINE 7 MG/24 HOURS TOPICAL PATCH TD SCH (10:19)
[2020-06-26] MEDS: LIDOCAINE 5% TOPICAL PATCH TP SCH (10:19)
[2020-06-26] MEDS: METHOCARBAMOL 500 MG TABLET PO SCH ×4 (10:20→21:49)
[2020-06-26] MEDS: PANTOPRAZOLE 20 MG TABLET PO SCH (10:20)
[2020-06-26] MEDS: ESCITALOPRAM OXALATE 20 MG TABLET PO SCH (10:20)
[2020-06-26] MEDS: PRENATAL VITAMINS W/ FOLIC ACID TABLET (FP) PO SCH (10:20)
[2020-06-26] MEDS: ARIPiprazole 5 MG TABLET PO SCH (11:25)
[2020-06-26] MEDS: THIAMINE HCL 100 MG TABLET (FP) PO SCH (21:49)
[2020-06-26] MEDS: MELATONIN 5 MG TABLETS PO SCH (21:49)
[2020-06-26] MEDS: METHYL SALICYLATE/MENTHOL OINT 30 GM TUBE TP SCH (21:50)
[2020-06-26] MEDS: LIDOCAINE PATCH REMOVAL MC SCH (21:50)
[2020-06-27] MEDS: ACAMPROSATE CALCIUM 333 MG TABLET.DR PO SCH ×3 (06:41→21:25)
[2020-06-27] MEDS: hydrOXYzine PAMOATE 25 MG CAPSULE (FP) PO SCH ×5 (06:41→21:25)
[2020-06-27] MEDS: INSULIN SLIDING SCALE (NOVOLOG) 1 VIAL SQ SCH ×3 (06:58→16:50)
[2020-06-27] MEDS: INSULIN (LEVEMIR) 100 UNITS/ML UNITS SQ SCH ×2 (06:58→21:26)
[2020-06-27] MEDS: PANTOPRAZOLE 20 MG TABLET PO SCH (10:11)
[2020-06-27] MEDS: ESCITALOPRAM OXALATE 20 MG TABLET PO SCH (10:11)
[2020-06-27] MEDS: ARIPiprazole 5 MG TABLET PO SCH (10:12)
[2020-06-27] MEDS: NICOTINE 7 MG/24 HOURS TOPICAL PATCH TD SCH (10:12)
[2020-06-27] MEDS: LIDOCAINE 5% TOPICAL PATCH TP SCH (10:13)
[2020-06-27] MEDS: PRENATAL VITAMINS W/ FOLIC ACID TABLET (FP) PO SCH (10:13)
[2020-06-27] MEDS: METHOCARBAMOL 500 MG TABLET PO SCH ×4 (12:23→21:25)
[2020-06-27] MEDS: THIAMINE HCL 100 MG TABLET (FP) PO SCH (21:25)
[2020-06-27] MEDS: MELATONIN 5 MG TABLETS PO SCH (21:25)
[2020-06-27] MEDS: LIDOCAINE PATCH REMOVAL MC SCH (22:11)
[2020-06-27] MEDS: METHYL SALICYLATE/MENTHOL OINT 30 GM TUBE TP SCH (22:11)
[2020-06-28] MEDS: ACAMPROSATE CALCIUM 333 MG TABLET.DR PO SCH (06:21)
[2020-06-28] MEDS: hydrOXYzine PAMOATE 25 MG CAPSULE (FP) PO SCH ×2 (06:22→09:07)
[2020-06-28] MEDS: INSULIN (LEVEMIR) 100 UNITS/ML UNITS SQ SCH (06:45)
[2020-06-28] MEDS: INSULIN SLIDING SCALE (NOVOLOG) 1 VIAL SQ SCH (06:46)
[2020-06-28 07:05] VITALS: TEMP 97.7
[2020-06-28 09:04] VITALS: BP 109/61; PULSE 64
[2020-06-28] MEDS: LIDOCAINE 5% TOPICAL PATCH TP SCH (09:07)
[2020-06-28] MEDS: ESCITALOPRAM OXALATE 20 MG TABLET PO SCH (09:07)
[2020-06-28] MEDS: ARIPiprazole 5 MG TABLET PO SCH (09:07)
[2020-06-28] MEDS: PRENATAL VITAMINS W/ FOLIC ACID TABLET (FP) PO SCH (09:07)
[2020-06-28] MEDS: PANTOPRAZOLE 20 MG TABLET PO SCH (09:07)
[2020-06-28] MEDS: NICOTINE 7 MG/24 HOURS TOPICAL PATCH TD SCH (09:08)
[2020-06-28] MEDS: METHOCARBAMOL 500 MG TABLET PO SCH (09:24)
== END 2020-06-28 09:15 | disposition home or self-care (01) | DRG 895 ==
LOC: YASAS 19:03 → Y5N 19:04
PROVIDERS: ADMIT Allergy & Immunology; ATTEND Allergy & Immunology
PROC: HZ42ZZZ Group Counseling for Substance Abuse Treatment, Cognitive-Behavioral (ICD-10-PCS; principal; 2020-06-18)
DX: F10.20 Alcohol dependence, uncomplicated (principal); F33.3 Major depressive disorder, recurrent, severe with psychotic symptoms; F10.280 Alcohol dependence with alcohol-induced anxiety disorder; F10.282 Alcohol dependence with alcohol-induced sleep disorder; F43.10 Post-traumatic stress disorder, unspecified; E11.65 Type 2 diabetes mellitus with hyperglycemia; K21.9 Gastro-esophageal reflux disease without esophagitis; Z85.528 Personal history of other malignant neoplasm of kidney; Z86.69 Personal history of other diseases of the nervous system and sense organs; Z79.4 Long term (current) use of insulin
CPT/HCPCS: 82962; 83036

== ENCOUNTER 2021-02-21 21:33 | Inpatient (IN) | payer BC ==
[2021-02-22 01:18] VITALS: BMI 20.9
[2021-02-22] MEDS ORDERED: ACETAMINOPHEN 325 MG TABLET (FP) PO PRN ×2 (01:56)
[2021-02-22] MEDS ORDERED: MENTHOL/PHENOL 1 EACH UD MM PRN (01:56)
[2021-02-22] MEDS ORDERED: ONDANSETRON *ODT* 4 MG TABLET SL PRN (01:56)
[2021-02-22] MEDS ORDERED: MAGNESIUM HYDROX 2400MG/30ML ORAL SUSPENSION 30 ML CUP PO PRN (01:56)
[2021-02-22] MEDS ORDERED: MAGNESIUM CITRATE 300 ML BOTTLE PO PRN (01:56)
[2021-02-22] MEDS ORDERED: MAG HYDROX/AL HYDROX/SIMETH 30 ML UNIT-DOSE CUP PO PRN (01:56)
[2021-02-22] MEDS ORDERED: diazePAM 5 MG TABLET PO ONE (01:56)
[2021-02-22] MEDS ORDERED: IBUPROFEN 400 MG TABLET (FP) PO PRN (01:56)
[2021-02-22] MEDS ORDERED: METHOCARBAMOL 500 MG TABLET PO PRN (01:56)
[2021-02-22] MEDS ORDERED: BISMUTH SUBSALICYLATE 524 MG/30 ML PO PRN (01:56)
[2021-02-22] MEDS ORDERED: diazePAM 5 MG TABLET ONE ×2 (02:47→05:52)
[2021-02-22] MEDS ORDERED: hydrOXYzine PAMOATE 25 MG CAPSULE (FP) PO ONE (05:52)
[2021-02-22] MEDS: hydrOXYzine PAMOATE 25 MG CAPSULE (FP) PO SCH ×5 (05:56→22:30)
[2021-02-22] MEDS: diazePAM 5 MG TABLET PO SCH ×4 (05:56→22:30)
[2021-02-22 11:11] LABS: HEMATOCRIT 45.2 % (35.4-49); HEMOGLOBIN 15.6 GM/dL (11.7-16.9); MCH 33.5 pg (25.7-33.7); MCHC 34.6 g/dl (32.0-35.9); MEAN CELL VOLUME 96.9 fl (80-96); PLATELET COUNT 110 10^3/uL (134-434); RBC 4.67 M/mm3 (4.00-5.60); RDW 14.7 % (11.9-15.9); WHITE BLOOD COUNT 6.1 K/mm3 (4.0-10.0)
[2021-02-22 11:23] LABS: BLOOD UREA NITROGEN 4.4 mg/dL (7-18); CALCIUM 8.8 mg/dL (8.5-10.1)
[2021-02-22 11:26] LABS: CREATININE 0.8 mg/dL (0.55-1.3)
[2021-02-22] MEDS: PRENATAL VITAMINS W/ FOLIC ACID TABLET (FP) PO SCH (11:27)
[2021-02-22] MEDS: PANTOPRAZOLE 20 MG TABLET PO SCH ×2 (11:27→22:30)
[2021-02-22 11:28] LABS: BILIRUBIN,TOTAL 1.3 mg/dL (0.2-1); TOT PROT 6.9 g/dl (6.4-8.2)
[2021-02-22] MEDS: MELATONIN 5 MG TABLETS PO SCH (22:30)
[2021-02-22] MEDS: THIAMINE HCL 100 MG TABLET (FP) PO SCH (22:30)
[2021-02-23] MEDS: diazePAM 5 MG TABLET PO SCH ×3 (05:25→22:16)
[2021-02-23] MEDS: hydrOXYzine PAMOATE 25 MG CAPSULE (FP) PO SCH ×5 (05:25→22:15)
[2021-02-23] MEDS: PANTOPRAZOLE 20 MG TABLET PO SCH ×2 (10:15→22:15)
[2021-02-23] MEDS: PRENATAL VITAMINS W/ FOLIC ACID TABLET (FP) PO SCH (10:15)
[2021-02-23] MEDS: diazePAM 5 MG TABLET PO PRN (10:17)
[2021-02-23] MEDS: ARIPiprazole 5 MG TABLET PO SCH (11:51)
[2021-02-23] MEDS: ESCITALOPRAM OXALATE 20 MG TABLET PO SCH (11:51)
[2021-02-23] MEDS: THIAMINE HCL 100 MG TABLET (FP) PO SCH (22:15)
[2021-02-23] MEDS: MELATONIN 5 MG TABLETS PO SCH (22:15)
[2021-02-24] MEDS: diazePAM 5 MG TABLET PO SCH ×2 (05:46→18:12)
[2021-02-24] MEDS: hydrOXYzine PAMOATE 25 MG CAPSULE (FP) PO SCH ×5 (05:46→22:44)
[2021-02-24] MEDS: INSULIN SLIDING SCALE (NOVOLOG) 1 VIAL SQ SCH ×3 (07:22→18:22)
[2021-02-24] MEDS: ARIPiprazole 5 MG TABLET PO SCH (09:21)
[2021-02-24] MEDS: PANTOPRAZOLE 20 MG TABLET PO SCH ×2 (09:21→22:45)
[2021-02-24] MEDS: ESCITALOPRAM OXALATE 20 MG TABLET PO SCH (09:21)
[2021-02-24] MEDS: diazePAM 5 MG TABLET PO PRN ×2 (09:22→22:48)
[2021-02-24] MEDS: PRENATAL VITAMINS W/ FOLIC ACID TABLET (FP) PO SCH (09:22)
[2021-02-24] MEDS ORDERED: INSULIN (NOVOLOG) ASPART 100 UNITS/ML 10ML VIAL ONE (11:27)
[2021-02-24] MEDS: THIAMINE HCL 100 MG TABLET (FP) PO SCH (22:44)
[2021-02-24] MEDS: MELATONIN 5 MG TABLETS PO SCH (22:44)
[2021-02-25] MEDS: hydrOXYzine PAMOATE 25 MG CAPSULE (FP) PO SCH (05:31)
[2021-02-25] MEDS ORDERED: diazePAM 5 MG TABLET PO ONE (06:00)
[2021-02-25] MEDS: INSULIN SLIDING SCALE (NOVOLOG) 1 VIAL SQ SCH (07:01)
[2021-02-25 09:09] VITALS: BP 119/80; PULSE 83; TEMP 98
== END 2021-02-25 09:36 | disposition home or self-care (01) | DRG 897 ==
LOC: YASAS 21:33 → Y6N 02-22 09:21
PROVIDERS: ADMIT Allergy & Immunology; ATTEND Allergy & Immunology
PROC: HZ2ZZZZ Detoxification Services for Substance Abuse Treatment (ICD-10-PCS; principal; 2021-02-22)
DX: F10.230 Alcohol dependence with withdrawal, uncomplicated (principal); F19.280 Other psychoactive substance dependence with psychoactive substance-induced anxiety disorder; F19.282 Other psychoactive substance dependence with psychoactive substance-induced sleep disorder; K21.9 Gastro-esophageal reflux disease without esophagitis; E11.9 Type 2 diabetes mellitus without complications; R74.8 Abnormal levels of other serum enzymes; Z79.4 Long term (current) use of insulin; Z85.528 Personal history of other malignant neoplasm of kidney; Z90.5 Acquired absence of kidney; Z86.69 Personal history of other diseases of the nervous system and sense organs; Z56.0 Unemployment, unspecified; Z59.0 Homelessness
CPT/HCPCS: 36415; 80053; 82962; 85027; 86780; C9803; Q0162; U0003; U0005